=== PATIENT | male | born 1960 | race Caucasian/White ===

== ENCOUNTER → 2016-09-19 | Outpatient (CLI) | payer BC ==
--- NOTE | 2016-09-19 17:12 | DIAGNOSTIC IMAGING REPORT ---
C-SPINE ROUTINE 4 OR 5 VIEWS CLINICAL HISTORY: Neck pain. COMPARISON STUDY: No previous studies for comparison. FINDINGS: There is slight reversal of the normal cervical lordosis. Moderate disc space narrowing and osteophytosis is noted at C5-C6. There is no fracture. Mild disc space narrowing is noted at several additional levels with mild multilevel facet arthrosis. There is moderate multilevel bony neural foraminal narrowing, most pronounced at the C5-C6 and C6-C7 levels. IMPRESSION: 1. No cervical spine fracture. 2. Moderate degenerative disc disease at C5-C6 with mild degenerative disc disease and facet arthrosis at multiple additional levels. Multilevel bony neural foraminal narrowing, as described above. Electronically signed by: Diaz King M.D. 09/19/2016 5:11 PM Dictated Date/Time: 09/19/2016 5:09 PM
== END | disposition home or self-care (01) ==
LOC: C.RAD1850 16:32
PROVIDERS: ATTEND Family Medicine
DX: M54.2 Cervicalgia (principal); M48.06 Spinal stenosis, lumbar region; M50.322 Other cervical disc degeneration at C5-C6 level; M48.02 Spinal stenosis, cervical region

== ENCOUNTER → 2016-11-14 | Outpatient (CLI) | payer BC ==
--- NOTE | 2016-11-14 16:01 | DIAGNOSTIC IMAGING REPORT ---
CERVICAL WITHOUT CONTRAST HISTORY: 56 years-old Male CERVICAL RADICULOPATHY acute neck pain with radiation into the left arm with associated numbness and tingling COMPARISON: Cervical spine radiographs 09/19/2016 TECHNIQUE: Multiplanar multisequence MRI of the cervical spine was obtained without contrast. FINDINGS: Focal areas of circumscribed increased T1 and T2 signal involving the C7 and T3 vertebral bodies suggests hemangioma without aggressive features. Mild edema like increased T2/STIR signal involving the anterior aspect of C2 is dark on the STIR suggesting artifact. No focal fracture identified. No marrow replacing process. Sagittal T1 images are moderately motion degraded. Imaged posterior fossa structures are unremarkable. Multilevel degenerative changes are seen as below. There is straightening of the normal cervical lordosis. C2-C3: Mild right greater than left uncovertebral spurring with mild right foraminal narrowing. Left foramen and central canal are patent. C3-C4: Mild intervertebral disc space narrowing with broad-based posterior disc osteophyte complex and mild facet arthropathy. There is effacement of the ventral thecal sac without significant central canal narrowing. Moderate right and mild left foraminal stenosis. C4-C5: Moderate intervertebral disc space narrowing with broad-based posterior disc osteophyte complex and mild facet arthropathy causes mild central canal and mild to moderate bilateral foraminal narrowing. C5-C6: Moderate intervertebral disc space narrowing with broad-based posterior disc osteophyte complex causes moderate central canal narrowing, AP dimension 7 mm as well as moderate left and moderate to severe right foraminal narrowing. Mild facet arthropathy. C6-C7: Mild facet arthropathy and uncovertebral spurring with mild right foraminal stenosis. Central canal and left foramen are patent. IMPRESSION: 1. Multilevel discogenic degenerative changes and mild facet arthropathy as above. These findings are most pronounced at C5-C6 where there is moderate intervertebral disc space narrowing with broad-based posterior disc osteophyte complex causing moderate central canal, moderate left and moderate to severe right foraminal stenosis. 2. At C4-C5, discogenic degenerative changes and facet arthropathy causes mild central canal and mild to moderate bilateral foraminal narrowing. 3. Straightening of the normal cervical lordosis. The above report was generated using voice recognition software. It may contain grammatical, syntax or spelling errors. Electronically signed by: Piyush Domínguez M.D. 11/14/2016 4:00 PM Dictated Date/Time: 11/14/2016 3:21 PM
== END | disposition home or self-care (01) ==
LOC: C.MRIBC 14:28
PROVIDERS: ATTEND Family Medicine
DX: M54.12 Radiculopathy, cervical region (principal); M50.322 Other cervical disc degeneration at C5-C6 level; M46.92 Unspecified inflammatory spondylopathy, cervical region; M48.02 Spinal stenosis, cervical region; M50.321 Other cervical disc degeneration at C4-C5 level